=== PATIENT | male | born 1955 | race African-American/Black ===

== ENCOUNTER 2016-12-27 17:32 | Inpatient (IN) ==
[2016-12-27] MEDS ORDERED: DIPH/TET/ACEL PERT BOOSTER VACCINE 0.5 ML VIAL IM ONE ×2 (18:06→18:25)
[2016-12-27] MEDS ORDERED: LACTATED RINGERS 1,000 ML IV STA (18:06)
[2016-12-27 18:24] LABS: Basophils % 0.3 % (0.0-0.8); Eosinophils % 0.1 % (0.00-10.9); Hemoglobin 12.3 GM/DL (14.0-18.0); Immature Granulocytes % 0.5 %; Immature Granulocytes Absolute 0.07 #; Lymphocytes # 1.4 10*3/uL (1.4-4.0); Lymphocytes % 10.8 % (21.2-54.2); Mean Corpuscular HGB Conc 34.2 GM/DL (32-36); Mean Corpuscular Hemoglobin 30 PG (27-34); Mean Corpuscular Volume 88.7 FL (87-102); Mean Platelet Volume 9.8 FL (9.6-12.0); Monocytes # 0.9 10*3/uL (0.11-0.8); Monocytes % 6.5 % (1.7-12.7); Neutrophils # 10.6 10*3/uL (1.4-7.4); Neutrophils % 81.8 % (38.7-73.9); Platelet Count 230 T/CUMM (130-400); Red Blood Count 4.06 MC/CUMM (3.8-5.5); Red Cell Distribution Width 14.9 % (9.3-17.3)
[2016-12-27 18:33] LABS: PT Patient Result 10.7 SECS; Partial Thromboplastin Time 25.9 SECS (0-40)
[2016-12-27 18:42] LABS: Lactic Acid 2.9 MMOL/L (0.4-2.0)
[2016-12-27 18:55] LABS: Alanine Aminotransferase 31 U/L (16-61); Albumin 3.6 G/DL (3.4-5.0); Alkaline Phosphatase 77 U/L (45-117); Amylase 112 U/L (25-115); Aspartate Amino Transferase 50 U/L (0-37); Bilirubin,Total < 0.39 MG/DL (0.2-1.0); Blood Urea Nitrogen 14 MG/DL (7-18); Calcium 8.1 MG/DL (8.5-10.1); Glucose 104 MG/DL (74-106); Osmolality,Calculated 283.1 MOS/KG (273-304); Potassium 3.8 MMOL/L (3.5-5.1); Sodium 142 MMOL/L (136-145); Total Protein 6.8 G/DL (6.4-8.3)
[2016-12-27] MEDS ORDERED: MORPHINE 2 MG/1 ML SYRINGE ONE (18:56)
[2016-12-27] MEDS ORDERED: MORPHINE 2 MG/1 ML SYRINGE IV STA ×2 (19:01→19:52)
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
[2016-12-27] MEDS ORDERED: ceFAZolin 1,000 MG VIAL ONE (19:42)
[2016-12-27] MEDS ORDERED: ceFAZolin 2,000 MG in SODIUM CHLORIDE 0.9% 100 ML IV STA (19:43)
[2016-12-27 19:44] LABS: Apearance,Urine Slightly Hazy (Clear); Bilirubin,Urine Negative (Negative); Blood, Urine Large mg/dL (Negative); Glucose,Urine (UA) Negative (Negative); Hyaline Casts,Urine 2 /LPF (0-3); Ketones,Urine Negative (Negative); Mucus,Urine Occasional /LPF (Occasional); Nitrite,Urine Negative (Negative); Protein,Urine 100 MG/DL; RBC,Urine 567 /HPF (0-4); Squamous Epithelial Cell,Urine Occasional /HPF (0-10); Urine Color Yellow (Yellow); Urine Specific Gravity 1.015 (1.001-1.035); Urine Urobilinogen < 2.0 EU/DL (0.2-1.0); WBC,Urine 9 /HPF (0-6)
[2016-12-27 19:52] LABS: Barbiturates Screen,Urine Negative (Negative); Benzodiazepines Screen,Urine Negative (Negative); Cannabinoid Screen,Urine Negative (Negative); Opiate Screen,Urine Negative (Negative); Phencyclidine Screen,Urine Negative (Negative)
[2016-12-27] MEDS ORDERED: NEOSTIGMINE 10 MG/10 ML VIAL ONE (20:24)
[2016-12-27] MEDS ORDERED: PHENYLEPHRINE 1 MG/10 ML SYRINGE IV ONE (20:24)
[2016-12-27] MEDS ORDERED: GLYCOPYRROLATE 0.4 MG/2 ML VIAL ONE (20:24)
[2016-12-27] MEDS ORDERED: LIDOCAINE 1% 5 ML VIAL ONE (20:24)
[2016-12-27] MEDS ORDERED: ROCURONIUM 100 MG/10 ML VIAL IV ONE (20:24)
[2016-12-27] MEDS ORDERED: PROPOFOL 200 MG/20 ML VIAL IV ONE (20:24)
[2016-12-27] MEDS ORDERED: LIDOCAINE MPF 2% /EPI 20 ML VIAL ONE (20:38)
[2016-12-27] MEDS ORDERED: BACITRACIN OINT 0.9 GM PACK TOP ONE (21:18)
[2016-12-27] MEDS ORDERED: SUGAMMADEX 200 MG/2 ML VIAL IV ONE (21:28)
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
--- NOTE | 2016-12-27 21:45 | Anesthesia Post-Op ---
Anesthesia Post OP - Post Ansesthetic Evaluation Patient seen in post op: Yes Resp: within normal limits CV: within normal limits Mental: within normal limits Temp: within normal limits Kbht-Cb-Gsyogfnuy: within normal limits Nausea and Vomiting: within normal limits Pain: within normal limits
[2016-12-27] MEDS ORDERED: SEVOFLURANE 1 UNIT/15 MINUTE INH ONE (21:47)
[2016-12-27] MEDS ORDERED: MIDAZOLAM 2 MG/2 ML VIAL ONE (21:47)
[2016-12-27] MEDS ORDERED: ONDANSETRON 4 MG/2 ML VIAL ONE (21:47)
[2016-12-27] MEDS ORDERED: fentaNYL 100 MCG/2 ML VIAL ONE (21:47)
[2016-12-27] MEDS ORDERED: HYDROmorphone 2 MG/1 ML VIAL ONE (21:47)
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
[2016-12-27] MEDS: HYDROmorphone 2 MG/1 ML VIAL IV PRN ×4 (21:48→22:02)
[2016-12-27] MEDS ORDERED: ONDANSETRON 4 MG/2 ML VIAL IV PRN (21:48)
[2016-12-27] MEDS: DEXTROSE 5% LACTATED RINGERS 1,000 ML IV SCH (21:50)
[2016-12-27] MEDS ORDERED: hydrALAZINE 20 MG/1 ML VIAL ONE (22:08)
[2016-12-27] MEDS ORDERED: hydrALAZINE 20 MG/1 ML VIAL IV STA (22:14)
[2016-12-27] MEDS: hydrALAZINE 20 MG/1 ML VIAL IV PRN (23:14)
[2016-12-27] MEDS: MORPHINE 2 MG/1 ML SYRINGE IV PRN (23:21)
[2016-12-28] MEDS ORDERED: LORazepam 2 MG/1 ML VIAL IV PRN (00:35)
[2016-12-28] MEDS: ceFAZolin 2,000 MG in PREMIX 1 EACH IV SCH ×2 (03:16→11:05)
[2016-12-28] MEDS: MORPHINE 2 MG/1 ML SYRINGE IV PRN ×4 (06:06→18:57)
[2016-12-28] MEDS: DEXTROSE 5% LACTATED RINGERS 1,000 ML IV SCH ×3 (06:19→20:40)
[2016-12-28 08:09] LABS: Basophils % 0.4 % (0.0-0.8); Hematocrit 30.7 VOL% (42.0-52.0); Hemoglobin 10.8 GM/DL (14.0-18.0); Immature Granulocytes % 0.4 %; Immature Granulocytes Absolute 0.03 #; Lymphocytes # 0.7 10*3/uL (1.4-4.0); Lymphocytes % 8.5 % (21.2-54.2); Mean Corpuscular HGB Conc 35.2 GM/DL (32-36); Mean Corpuscular Hemoglobin 31 PG (27-34); Mean Corpuscular Volume 87.2 FL (87-102); Mean Platelet Volume 10.2 FL (9.6-12.0); Monocytes # 0.9 10*3/uL (0.11-0.8); Monocytes % 12.2 % (1.7-12.7); Neutrophils % 78.5 % (38.7-73.9); Platelet Count 187 T/CUMM (130-400); Red Blood Count 3.52 MC/CUMM (3.8-5.5); Red Cell Distribution Width 14.9 % (9.3-17.3); White Blood Count 7.6 T/CUMM (4-12)
[2016-12-28] MEDS: ACETAMINOPHEN 325 MG TABLET PO PRN ×2 (08:13→19:36)
[2016-12-28] MEDS: PANTOPRAZOLE 40 MG VIAL IV SCH (08:14)
[2016-12-28 08:37] LABS: Albumin 3.4 G/DL (3.4-5.0); Bilirubin,Total 0.4 MG/DL (0.2-1.0); Calcium 8.1 MG/DL (8.5-10.1); Osmolality,Calculated 278.5 MOS/KG (273-304); Total Protein 6.6 G/DL (6.4-8.3)
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
[2016-12-28] MEDS: hydrALAZINE 20 MG/1 ML VIAL IV PRN (10:37)
[2016-12-28] MEDS ORDERED: SKIN HEALING OINT (AQUAPHOR) 50 GM TUBE TOP PRN (11:26)
[2016-12-28] MEDS: ONDANSETRON 4 MG/2 ML VIAL IV PRN (13:26)
[2016-12-28] MEDS: BACITRACIN OINT 0.9 GM PACK TOP SCH (14:16)
[2016-12-29] MEDS: MORPHINE 2 MG/1 ML SYRINGE IV PRN ×4 (00:16→20:33)
[2016-12-29] MEDS: DEXTROSE 5% LACTATED RINGERS 1,000 ML IV SCH ×6 (01:36→21:29)
[2016-12-29 05:20] LABS: Basophils % 0.3 % (0.0-0.8); Eosinophils # 0.1 10*3/uL (0.0-0.87); Eosinophils % 0.7 % (0.00-10.9); Hematocrit 29.6 VOL% (42.0-52.0); Hemoglobin 10.4 GM/DL (14.0-18.0); Immature Granulocytes % 0.3 %; Immature Granulocytes Absolute 0.03 #; Lymphocytes # 0.5 10*3/uL (1.4-4.0); Lymphocytes % 6.3 % (21.2-54.2); Mean Corpuscular HGB Conc 35.1 GM/DL (32-36); Mean Corpuscular Hemoglobin 30 PG (27-34); Mean Corpuscular Volume 86.3 FL (87-102); Mean Platelet Volume 10.8 FL (9.6-12.0); Monocytes # 0.7 10*3/uL (0.11-0.8); Monocytes % 8.1 % (1.7-12.7); Neutrophils # 7.3 10*3/uL (1.4-7.4); Neutrophils % 84.3 % (38.7-73.9); Platelet Count 151 T/CUMM (130-400); Red Blood Count 3.43 MC/CUMM (3.8-5.5); Red Cell Distribution Width 14.1 % (9.3-17.3); White Blood Count 8.6 T/CUMM (4-12)
[2016-12-29 05:59] LABS: Calcium 8.3 MG/DL (8.5-10.1); Magnesium 1.7 MG/DL (1.8-2.4); Potassium 3.5 MMOL/L (3.5-5.1)
[2016-12-29 06:03] LABS: Hypochromasia 1+; Microcytosis 1+
[2016-12-29 06:04] LABS: Platelet Estimate Adequate
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
[2016-12-29] MEDS: PANTOPRAZOLE 40 MG VIAL IV SCH (10:14)
[2016-12-29] MEDS: BACITRACIN OINT 0.9 GM PACK TOP SCH (10:14)
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
[2016-12-29] MEDS: hydrALAZINE 20 MG/1 ML VIAL IV PRN ×3 (14:10→20:35)
[2016-12-29] MEDS: LIDOCAINE 5% PATCH TRANSDERM SCH (14:11)
[2016-12-29] MEDS: ONDANSETRON 4 MG/2 ML VIAL IV PRN (17:50)
[2016-12-30] MEDS: MORPHINE 2 MG/1 ML SYRINGE IV PRN ×4 (04:14→18:02)
[2016-12-30] MEDS: DEXTROSE 5% LACTATED RINGERS 1,000 ML IV SCH ×3 (05:34→10:19)
--- NOTE | 2016-12-30 06:45 | Pain Management Progress Note ---
Assessment and Plan (1) Cervical spondylosis with myelopathy Status: Acute Assessment and plan: We will try physical therapy for the neck pain. Using a Lidoderm patch to help with the refracture pain of that is not successful we will try intercostal nerve blocks tomorrow Current Visit: Yes (2) Cervical spondylosis with myelopathy and radiculopathy Status: Acute Assessment and plan: Continue physical therapy for now he may need cervical epidural injection 6/6 continue current medications for pain Current Visit: Yes Pain - Subjective Interval history: lidoderm patches are helping with left chest wall pain and he admits it is slightly better Exam - Constitutional Vitals: Period Temp Pulse Resp BP Sys/Irby Pulse Ox Last 24 Hr 97.4 F-99.5 F 37-108 12-22 142-183/79-100 95-99 General appearance: normal weight - Head Head exam: Present: normal inspection - Eye Eye exam: Present: EOMI Pupils: Present: LEISA - ENT ENT exam: Present: normal exam Ear exam: Present: intact Mouth exam: Present: normal external inspection - Neck Neck exam: Present: normal inspection - Respiratory Respiratory exam: Present: clear to auscultation bilaterally, chest wall tenderness, decreased breath sounds - Cardiovascular Cardiovascular exam: Present: RRR - GI/Abdominal GI/Abdominal exam: Present: normal bowel sounds - Extremities Exam Extremities exam: Present: normal inspection - Back Exam Back exam: Present: vertebral tenderness - Neurological Exam Neurological exam: Present: abnormal gait - Skin Skin exam: Present: normal color Results - Labs CBC & BMP: 12/29/16 04:42 12/29/16 04:42 Lab Results: I have reviewed the past 24 hour labs Quality Measures - VTE Contraindication to Pharmacological VTE Prophylaxis: High Risk of Bleeding Specialty Discharge - Follow Up or Referrals Follow up with: Bryn Fuentes MD [Physician] -
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
[2016-12-30] MEDS: PANTOPRAZOLE 40 MG VIAL IV SCH (08:34)
[2016-12-30] MEDS: LIDOCAINE 5% PATCH TRANSDERM SCH (08:35)
[2016-12-30] MEDS: BACITRACIN OINT 0.9 GM PACK TOP SCH (08:35)
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
[2016-12-30] MEDS: hydrALAZINE 20 MG/1 ML VIAL IV PRN (19:49)
[2016-12-31] MEDS: hydrALAZINE 20 MG/1 ML VIAL IV PRN (04:02)
[2016-12-31] MEDS: MORPHINE 2 MG/1 ML SYRINGE IV PRN ×3 (04:03→20:06)
[2016-12-31] MEDS: DEXTROSE 5% LACTATED RINGERS 1,000 ML IV SCH (04:08)
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
[2016-12-31] MEDS ORDERED: MAGNESIUM CITRATE 300 ML BOTTLE PO ONE (09:14)
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
[2016-12-31] MEDS: PANTOPRAZOLE 40 MG VIAL IV SCH (09:45)
[2016-12-31] MEDS: BACITRACIN OINT 0.9 GM PACK TOP SCH (09:46)
[2016-12-31] MEDS: LIDOCAINE 5% PATCH TRANSDERM SCH (09:46)
[2016-12-31] MEDS: DOCUSATE SODIUM 100 MG CAPSULE PO SCH (20:06)
[2017-01-01] MEDS: DEXTROSE 5% LACTATED RINGERS 1,000 ML IV SCH (00:17)
[2017-01-01] MEDS: MORPHINE 2 MG/1 ML SYRINGE IV PRN ×2 (03:37→20:51)
[2017-01-01 05:21] LABS: Basophils % 0.5 % (0.0-0.8); Eosinophils # 0.1 10*3/uL (0.0-0.87); Eosinophils % 1.8 % (0.00-10.9); Hematocrit 28.3 VOL% (42.0-52.0); Hemoglobin 9.9 GM/DL (14.0-18.0); Immature Granulocytes % 0.4 %; Immature Granulocytes Absolute 0.02 #; Lymphocytes # 0.8 10*3/uL (1.4-4.0); Lymphocytes % 14.2 % (21.2-54.2); Mean Corpuscular Hemoglobin 30 PG (27-34); Monocytes # 0.9 10*3/uL (0.11-0.8); Monocytes % 16.6 % (1.7-12.7); Neutrophils # 3.8 10*3/uL (1.4-7.4); Neutrophils % 66.5 % (38.7-73.9); Platelet Count 166 T/CUMM (130-400); Red Blood Count 3.29 MC/CUMM (3.8-5.5); Red Cell Distribution Width 13.2 % (9.3-17.3); White Blood Count 5.7 T/CUMM (4-12)
[2017-01-01 05:46] LABS: Calcium 8.2 MG/DL (8.5-10.1); Magnesium 1.9 MG/DL (1.8-2.4); Osmolality,Calculated 267.1 MOS/KG (273-304); Potassium 3.3 MMOL/L (3.5-5.1)
[2017-01-01 05:49] LABS: Band Neutrophils 1 % (0-10); Eosinophils 4 % (0-10); Hypochromasia 1+; Lymphocytes 13 % (20-55); Microcytosis 1+; Platelet Estimate Normal; Segmented Neutrophils 64 % (50-85); Total Cells Counted 100
[2017-01-01] MEDS ORDERED: oxyCODONE/ACETAMINOPHEN 5-325 MG TABLET PO PRN (06:12)
--- NOTE | 2017-01-01 06:14 | Pain Management Progress Note ---
Assessment and Plan (1) Cervical spondylosis with myelopathy Status: Acute Assessment and plan: We will try physical therapy for the neck pain. Using a Lidoderm patch to help with the refracture pain of that is not successful we will try intercostal nerve blocks tomorrow 01/01 will continue norco and morphine and add percocet prn Current Visit: Yes (2) Cervical spondylosis with myelopathy and radiculopathy Status: Acute Assessment and plan: Continue physical therapy for now he may need cervical epidural injection 12/30 continue current medications for pain Current Visit: Yes Pain - Subjective Interval history: still complaining of left chest wall pain, i have discussed about the gradual improvement expected . i will add percocet fo pain Exam - Constitutional Vitals: Period Temp Pulse Resp BP Sys/Irby Pulse Ox Last 24 Hr 98.7 F-100.5 F 90-101 18-20 140-160/83-102 93-97 General appearance: mild distress, no no acute distress - Head Head exam: Present: normal inspection - Eye Eye exam: Present: EOMI Pupils: Present: LEISA - ENT ENT exam: Present: normal exam Ear exam: Present: intact Mouth exam: Present: normal external inspection - Neck Neck exam: Present: normal inspection - Respiratory Respiratory exam: Present: chest wall tenderness, decreased breath sounds - Cardiovascular Cardiovascular exam: Present: RRR - GI/Abdominal GI/Abdominal exam: Present: hypoactive bowel sounds - Extremities Exam Extremities exam: Present: normal inspection - Back Exam Back exam: Present: vertebral tenderness - Neurological Exam Neurological exam: Present: abnormal gait - Skin Skin exam: Present: normal color Results - Labs CBC & BMP: 01/01/17 04:29 01/01/17 04:29 Lab Results: I have reviewed the past 24 hour labs Quality Measures - VTE Contraindication to Pharmacological VTE Prophylaxis: High Risk of Bleeding Specialty Discharge - Follow Up or Referrals Follow up with: Bryn Fuentes MD [Physician] -
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
[2017-01-01] MEDS: LIDOCAINE 5% PATCH TRANSDERM SCH (09:11)
[2017-01-01] MEDS: PANTOPRAZOLE 40 MG VIAL IV SCH (09:11)
[2017-01-01] MEDS: DOCUSATE SODIUM 100 MG CAPSULE PO SCH ×2 (09:11→20:52)
[2017-01-01] MEDS: BACITRACIN OINT 0.9 GM PACK TOP SCH (09:16)
--- NOTE | 2017-01-02 06:22 | Pain Management Progress Note ---
Assessment and Plan (1) Cervical spondylosis with myelopathy Status: Acute Assessment and plan: We will try physical therapy for the neck pain. Using a Lidoderm patch to help with the refracture pain of that is not successful we will try intercostal nerve blocks tomorrow 01/01 will continue norco and morphine and add percocet prn 01/02 I will give him prescription of Percocet to go home on. And we will see him for follow-up in pain clinic in 1 month Current Visit: Yes (2) Cervical spondylosis with myelopathy and radiculopathy Status: Acute Assessment and plan: Continue physical therapy for now he may need cervical epidural injection 12/30 continue current medications for pain Current Visit: Yes Pain - Subjective Interval history: His pain seems to be better controlled and patient is feeling better today. I will go ahead and write Percocet prescription for him to go home on making a follow-up appointment pain clinic Exam - Constitutional Vitals: Period Temp Pulse Resp BP Sys/Irby Pulse Ox Last 24 Hr 97.4 F-99.2 F 79-84 16-20 129-163/81-93 93-97 General appearance: no acute distress - Head Head exam: Present: normal inspection - Eye Eye exam: Present: EOMI Pupils: Present: LEISA - ENT ENT exam: Present: normal exam Ear exam: Present: intact Mouth exam: Present: normal external inspection - Neck Neck exam: Present: normal inspection - Respiratory Respiratory exam: Present: chest wall tenderness, decreased breath sounds - Cardiovascular Cardiovascular exam: Present: RRR - GI/Abdominal GI/Abdominal exam: Present: normal bowel sounds - Extremities Exam Extremities exam: Present: normal inspection - Back Exam Back exam: Present: vertebral tenderness - Neurological Exam Neurological exam: Present: abnormal gait Results - Labs CBC & BMP: 01/01/17 04:29 01/01/17 04:29 Lab Results: I have reviewed the past 24 hour labs Quality Measures - VTE Contraindication to Pharmacological VTE Prophylaxis: High Risk of Bleeding Specialty Discharge - Follow Up or Referrals Follow up with: Bryn Fuentes MD [Physician] -
[2017-01-02 07:08] VITALS: BP 151/77
[2017-01-02] MEDS: DOCUSATE SODIUM 100 MG CAPSULE PO SCH (09:25)
[2017-01-02] MEDS: BACITRACIN OINT 0.9 GM PACK TOP SCH (09:25)
[2017-01-02] MEDS: PANTOPRAZOLE 40 MG VIAL IV SCH (09:25)
[2017-01-02] MEDS: LIDOCAINE 5% PATCH TRANSDERM SCH (09:27)
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
== END 2017-01-02 11:45 | disposition home or self-care (01) | DRG 571 ==
LOC: N.ED 17:32 → N.EDINP 19:50 → N.ICU 20:22 → N.3E 12-29 20:36
PROVIDERS: ADMIT Specialist; ATTEND Specialist

== ENCOUNTER 2018-12-10 12:13 | Inpatient (IN) ==
[2018-12-10] MEDS ORDERED: SODIUM CHLORIDE 0.9% 500 ML IV STA (12:38)
[2018-12-10] MEDS ORDERED: ONDANSETRON 4 MG/2 ML VIAL IV STA (12:38)
[2018-12-10 13:32] LABS: Basophils % 0.4 % (0.0-0.8); Eosinophils % 0.2 % (0.00-10.9); Hematocrit 42.8 VOL% (42.0-52.0); Hemoglobin 14.2 GM/DL (14.0-18.0); Immature Granulocytes % 0.4 %; Immature Granulocytes Absolute 0.02 #; Lymphocytes # 1.7 10*3/uL (1.4-4.0); Mean Corpuscular HGB Conc 33.2 GM/DL (32-36); Mean Corpuscular Volume 87.5 FL (87-102); Mean Platelet Volume 11.4 FL (9.6-12.0); Monocytes % 8.8 % (1.7-12.7); Neutrophils % 59.2 % (38.7-73.9); Platelet Count 189 T/CUMM (130-400); Red Blood Count 4.89 MC/CUMM (3.8-5.5); Red Cell Distribution Width 14.3 % (9.3-17.3); White Blood Count 5.5 T/CUMM (4-12)
[2018-12-10 14:12] LABS: INR 1.1; PT Patient Result 11.6 SECS; Partial Thromboplastin Time 27.9 SECS (0-40)
[2018-12-10 17:04] LABS: Alanine Aminotransferase 103 U/L (16-61); Albumin 3.7 G/DL (3.4-5.0); Alkaline Phosphatase 187 U/L (45-117); Aspartate Amino Transferase 51 U/L (0-37); Blood Urea Nitrogen 19 MG/DL (7-18); Calcium 10.2 MG/DL (8.5-10.1); Glucose 82 MG/DL (74-106); Osmolality,Calculated 273.8 MOS/KG (273-304); Troponin I 0.062 NG/ML (0.00-0.045)
[2018-12-10] MEDS ORDERED: METOPROLOL TARTRATE 5 MG/5 ML VIAL IV STA (17:57)
[2018-12-10 18:43] LABS: Apearance,Urine CLEAR (Clear); Bilirubin,Urine Negative (Negative); Blood, Urine Negative (Negative); Glucose,Urine (UA) Negative (Negative); Hyaline Casts,Urine 5 /LPF (0-3); Ketones,Urine Negative (Negative); Mucus,Urine Occasional /LPF (Occasional); Nitrite,Urine Negative (Negative); Protein,Urine Negative; RBC,Urine 1 /HPF (0-4); Squamous Epithelial Cell,Urine Occasional /HPF (0-10); Urine Color Yellow (Yellow); Urine Specific Gravity 1.021 (1.001-1.035); Urine Urobilinogen < 2.0 EU/DL (0.2-1.0); WBC,Urine 2 /HPF (0-6)
[2018-12-10 18:45] LABS: Barbiturates Screen,Urine Negative (Negative); Benzodiazepines Screen,Urine Negative (Negative); Cannabinoid Screen,Urine Negative (Negative); Opiate Screen,Urine Negative (Negative); Phencyclidine Screen,Urine Negative (Negative)
[2018-12-10] MEDS ORDERED: MORPHINE 4 MG/1 ML VIAL IV PRN (20:18)
[2018-12-10] MEDS ORDERED: ONDANSETRON 4 MG/2 ML VIAL IV PRN (20:18)
[2018-12-10] MEDS ORDERED: guaiFENesin/DM ER 600-30 MG TABLET PO PRN (20:18)
[2018-12-10 21:35] LABS: Hepatitis B Surface Ag Quant < 0.10 Index; Hepatitis B Surface Ag Result Negative (Negative); Hepatitis C Virus Ab Quant 0.09 Index; Hepatitis C Virus Ab Result Negative (Negative)
[2018-12-10 22:02] LABS: Troponin I 0.069 NG/ML (0.00-0.045)
[2018-12-10] MEDS: SODIUM CHLORIDE 0.9% 1,000 ML IV SCH (22:09)
[2018-12-10] MEDS: METOPROLOL TARTRATE 100 MG TABLET PO SCH (22:10)
[2018-12-10] MEDS: DILTIAZEM 30 MG TABLET PO SCH (22:10)
[2018-12-11 05:04] LABS: Basophils % 0.4 % (0.0-0.8); Eosinophils % 0.5 % (0.00-10.9); Hematocrit 38.4 VOL% (42.0-52.0); Hemoglobin 12.7 GM/DL (14.0-18.0); Immature Granulocytes % 0.2 %; Immature Granulocytes Absolute 0.01 #; Lymphocytes # 1.9 10*3/uL (1.4-4.0); Lymphocytes % 33.5 % (21.2-54.2); Mean Corpuscular HGB Conc 33.1 GM/DL (32-36); Mean Corpuscular Volume 86.3 FL (87-102); Mean Platelet Volume 11.4 FL (9.6-12.0); Monocytes % 9.5 % (1.7-12.7); Neutrophils % 55.9 % (38.7-73.9); Platelet Count 186 T/CUMM (130-400); Red Blood Count 4.45 MC/CUMM (3.8-5.5); Red Cell Distribution Width 14.2 % (9.3-17.3); White Blood Count 5.6 T/CUMM (4-12)
[2018-12-11 05:38] LABS: Albumin 3.2 G/DL (3.4-5.0); Bilirubin,Total 0.9 MG/DL (0.2-1.0); Calcium 9.5 MG/DL (8.5-10.1); Osmolality,Calculated 272.8 MOS/KG (273-304); Risk Ratio 2.36; VLDL CHOLESTEROL 13.8 MG/DL
[2018-12-11] MEDS ORDERED: ATORVASTATIN 80 MG TABLET PO SCH (09:00)
[2018-12-11] MEDS: SERTRALINE 50 MG TABLET PO SCH (09:46)
[2018-12-11] MEDS: DILTIAZEM 30 MG TABLET PO SCH (09:47)
[2018-12-11] MEDS: METOPROLOL TARTRATE 100 MG TABLET PO SCH ×2 (09:47→22:35)
[2018-12-11] MEDS: PANTOPRAZOLE 40 MG TABLET PO SCH (09:47)
[2018-12-11] MEDS: DOCUSATE/SENNA 50-8.6 MG TABLET PO SCH (09:47)
[2018-12-11] MEDS: LISINOPRIL 5 MG TABLET PO SCH (09:47)
[2018-12-11] MEDS: ASPIRIN EC 81 MG TABLET PO SCH (13:15)
[2018-12-11] MEDS: SODIUM CHLORIDE 0.9% 1,000 ML IV SCH (15:55)
[2018-12-11] MEDS: RIVAROXABAN 20 MG TABLET PO SCH (18:04)
[2018-12-12 04:37] LABS: Basophils % 0.5 % (0.0-0.8); Hematocrit 38.5 VOL% (42.0-52.0); Hemoglobin 12.3 GM/DL (14.0-18.0); Immature Granulocytes % 0.2 %; Immature Granulocytes Absolute 0.01 #; Lymphocytes # 1.6 10*3/uL (1.4-4.0); Lymphocytes % 38.3 % (21.2-54.2); Mean Corpuscular HGB Conc 31.9 GM/DL (32-36); Mean Corpuscular Volume 88.5 FL (87-102); Mean Platelet Volume 11.4 FL (9.6-12.0); Monocytes % 9.3 % (1.7-12.7); Neutrophils % 50.7 % (38.7-73.9); Platelet Count 187 T/CUMM (130-400); Red Blood Count 4.35 MC/CUMM (3.8-5.5); Red Cell Distribution Width 14.3 % (9.3-17.3); White Blood Count 4.1 T/CUMM (4-12)
[2018-12-12 04:50] LABS: Albumin 3.1 G/DL (3.4-5.0); Bilirubin,Total 0.6 MG/DL (0.2-1.0); Osmolality,Calculated 281.3 MOS/KG (273-304); Total Protein 6.8 G/DL (6.4-8.3)
[2018-12-12 09:02] LABS: Troponin I 0.138 NG/ML (0.00-0.045)
[2018-12-12] MEDS: ATORVASTATIN 20 MG TABLET PO SCH (09:14)
[2018-12-12] MEDS: PANTOPRAZOLE 40 MG TABLET PO SCH (09:14)
[2018-12-12] MEDS: ASPIRIN EC 81 MG TABLET PO SCH (09:14)
[2018-12-12] MEDS: SERTRALINE 50 MG TABLET PO SCH (09:14)
[2018-12-12] MEDS: METOPROLOL TARTRATE 100 MG TABLET PO SCH ×2 (09:14→21:53)
[2018-12-12] MEDS: LISINOPRIL 5 MG TABLET PO SCH (09:14)
[2018-12-12] MEDS: DOCUSATE/SENNA 50-8.6 MG TABLET PO SCH (09:14)
[2018-12-12] MEDS: SODIUM CHLORIDE 0.9% 1,000 ML IV SCH ×2 (09:41→13:57)
[2018-12-12 14:11] LABS: % Iron Saturation 25.9 % (18-50)
[2018-12-12] MEDS: RIVAROXABAN 20 MG TABLET PO SCH (16:12)
[2018-12-13] MEDS: SODIUM CHLORIDE 0.9% 1,000 ML IV SCH (05:36)
[2018-12-13 05:57] LABS: Prealbumin 10.1 MG/DL (20-40)
[2018-12-13] MEDS ORDERED: ACETAMINOPHEN 325 MG TABLET PO ONE (08:04)
[2018-12-13] MEDS: PANTOPRAZOLE 40 MG TABLET PO SCH (08:10)
[2018-12-13] MEDS: ATORVASTATIN 20 MG TABLET PO SCH (08:10)
[2018-12-13] MEDS: METOPROLOL TARTRATE 100 MG TABLET PO SCH (08:10)
[2018-12-13] MEDS: SERTRALINE 50 MG TABLET PO SCH (08:10)
[2018-12-13] MEDS: ASPIRIN EC 81 MG TABLET PO SCH (08:10)
[2018-12-13] MEDS: LISINOPRIL 5 MG TABLET PO SCH (08:10)
[2018-12-13] MEDS: DOCUSATE/SENNA 50-8.6 MG TABLET PO SCH (08:11)
[2018-12-13 08:22] VITALS: BP 113/75
[2018-12-13] MEDS ORDERED: MAGNESIUM SULF RIDER 4 GM in PREMIX 1 EACH IV PRN (08:36)
[2018-12-13] MEDS ORDERED: MAGNESIUM SULF RIDER 2 GM in PREMIX 1 EACH IV PRN (08:36)
[2018-12-13] MEDS: RIVAROXABAN 20 MG TABLET PO SCH (16:47)
== END 2018-12-13 17:25 | disposition home health service (06) | DRG 201 ==
LOC: EDUNIT# → EDBD → N.ED 12:13 → N.EDINP 20:16 → N.TELEN 20:35
PROVIDERS: ADMIT Internal Medicine; ATTEND Internal Medicine

== ENCOUNTER 2018-12-17 13:17 | Observation (INO) ==
[2018-12-17] MEDS ORDERED: ONDANSETRON 4 MG/2 ML VIAL IV STA (13:45)
[2018-12-17] MEDS ORDERED: PANTOPRAZOLE 40 MG VIAL IV STA (13:45)
[2018-12-17] MEDS ORDERED: SODIUM CHLORIDE 0.9% 500 ML IV STA (13:45)
[2018-12-17] MEDS ORDERED: METOCLOPRAMIDE 10 MG/2 ML VIAL IV STA (13:45)
[2018-12-17 14:51] LABS: Basophils % 0.3 % (0.0-0.8); Hemoglobin 12.8 GM/DL (14.0-18.0); Immature Granulocytes % 0.4 %; Immature Granulocytes Absolute 0.03 #; Lymphocytes # 1.3 10*3/uL (1.4-4.0); Lymphocytes % 16.4 % (21.2-54.2); Mean Corpuscular Volume 88.3 FL (87-102); Mean Platelet Volume 11.5 FL (9.6-12.0); Monocytes % 5.5 % (1.7-12.7); Neutrophils % 77.4 % (38.7-73.9); Platelet Count 190 T/CUMM (130-400); Red Blood Count 4.53 MC/CUMM (3.8-5.5); Red Cell Distribution Width 14.8 % (9.3-17.3); White Blood Count 7.9 T/CUMM (4-12)
[2018-12-17 15:01] LABS: INR 1.1; PT Patient Result 11.4 SECS; Partial Thromboplastin Time 24.4 SECS (0-40)
[2018-12-17 15:53] LABS: Alanine Aminotransferase 83 U/L (16-61); Albumin 3.9 G/DL (3.4-5.0); Alkaline Phosphatase 187 U/L (45-117); Amylase 92 U/L (25-115); Aspartate Amino Transferase 59 U/L (0-37); Blood Urea Nitrogen 22 MG/DL (7-18); Calcium 9.9 MG/DL (8.5-10.1); Glucose 83 MG/DL (74-106); Osmolality,Calculated 274.8 MOS/KG (273-304); Total Protein 8.1 G/DL (6.4-8.3)
[2018-12-17 16:24] LABS: Apearance,Urine Slightly Hazy (Clear); Bilirubin,Urine Negative (Negative); Blood, Urine Negative (Negative); Glucose,Urine (UA) Negative (Negative); Hyaline Casts,Urine 43 /LPF (0-3); Ketones,Urine Negative (Negative); Mucus,Urine Moderate /LPF (Occasional); Nitrite,Urine Negative (Negative); Protein,Urine Negative; RBC,Urine 36 /HPF (0-4); Squamous Epithelial Cell,Urine Occasional /HPF (0-10); Urine Specific Gravity 1.023 (1.001-1.035); WBC,Urine 3 /HPF (0-6)
[2018-12-17 16:27] LABS: Urine Color y (Yellow)
[2018-12-17 18:36] LABS: Blood Urea Nitrogen 23 MG/DL (7-18); Calcium 9.4 MG/DL (8.5-10.1); Glucose 87 MG/DL (74-106)
[2018-12-17 18:37] LABS: Troponin I 0.048 NG/ML (0.00-0.045)
[2018-12-17] MEDS ORDERED: ONDANSETRON 4 MG/2 ML VIAL IV PRN (20:45)
[2018-12-17] MEDS: SODIUM CHLORIDE 0.9% 1,000 ML IV SCH (22:29)
[2018-12-17] MEDS: MAGNESIUM CITRATE 300 ML BOTTLE PO STA ×2 (22:29→22:36)
[2018-12-17] MEDS: PANTOPRAZOLE 40 MG TABLET PO SCH (22:29)
[2018-12-18] MEDS: DILTIAZEM 30 MG TABLET PO SCH ×3 (01:06→13:01)
[2018-12-18 04:10] LABS: Basophils % 0.5 % (0.0-0.8); Eosinophils % 0.5 % (0.00-10.9); Hematocrit 37.1 VOL% (42.0-52.0); Hemoglobin 11.9 GM/DL (14.0-18.0); Immature Granulocytes % 0.3 %; Immature Granulocytes Absolute 0.02 #; Lymphocytes # 2.1 10*3/uL (1.4-4.0); Lymphocytes % 32.5 % (21.2-54.2); Mean Corpuscular HGB Conc 32.1 GM/DL (32-36); Mean Corpuscular Volume 87.9 FL (87-102); Monocytes % 11.7 % (1.7-12.7); Neutrophils % 54.5 % (38.7-73.9); Platelet Count 181 T/CUMM (130-400); Red Blood Count 4.22 MC/CUMM (3.8-5.5); Red Cell Distribution Width 14.8 % (9.3-17.3); White Blood Count 6.5 T/CUMM (4-12)
[2018-12-18 04:22] LABS: Albumin 3.3 G/DL (3.4-5.0); Bilirubin,Total 0.5 MG/DL (0.2-1.0); Calcium 9.5 MG/DL (8.5-10.1); Osmolality,Calculated 274.8 MOS/KG (273-304); Total Protein 7.2 G/DL (6.4-8.3)
[2018-12-18] MEDS: SODIUM CHLORIDE 0.9% 1,000 ML IV SCH (06:44)
[2018-12-18] MEDS ORDERED: BISACODYL 5 MG TABLET PO SCH (09:00)
[2018-12-18] MEDS ORDERED: ATORVASTATIN 20 MG TABLET PO SCH (09:00)
[2018-12-18] MEDS ORDERED: ASPIRIN EC 81 MG TABLET PO SCH (09:00)
[2018-12-18] MEDS ORDERED: SERTRALINE 50 MG TABLET PO SCH (09:00)
[2018-12-18] MEDS: PANTOPRAZOLE 40 MG TABLET PO SCH (09:21)
[2018-12-18] MEDS ORDERED: MAGNESIUM CITRATE 300 ML BOTTLE PO ONE (09:32)
[2018-12-18 12:09] VITALS: BP 90/72
[2018-12-18] MEDS ORDERED: RIVAROXABAN 20 MG TABLET PO SCH (17:00)
== END 2018-12-18 15:45 | disposition home or self-care (01) ==
LOC: EDUNIT# → EDBD → N.ED 13:17 → N.EDINP 13:17 → N.2E 21:26
PROVIDERS: ADMIT Internal Medicine; ATTEND Internal Medicine

== ENCOUNTER 2019-02-19 08:27 | Observation (INO) ==
[2019-02-19 09:14] LABS: Basophils % 0.2 % (0.0-0.8); Eosinophils % 0.2 % (0.00-10.9); Hematocrit 42.4 VOL% (42.0-52.0); Hemoglobin 13.6 GM/DL (14.0-18.0); Immature Granulocytes % 0.4 %; Immature Granulocytes Absolute 0.03 #; Lymphocytes # 1.1 10*3/uL (1.4-4.0); Lymphocytes % 13.3 % (21.2-54.2); Mean Corpuscular HGB Conc 32.1 GM/DL (32-36); Mean Corpuscular Volume 88.3 FL (87-102); Mean Platelet Volume 12.4 FL (9.6-12.0); Monocytes % 14.1 % (1.7-12.7); Neutrophils % 71.8 % (38.7-73.9); Platelet Count 195 T/CUMM (130-400); Red Cell Distribution Width 14.2 % (9.3-17.3); White Blood Count 8.3 T/CUMM (4-12)
[2019-02-19 09:22] LABS: INR 1.3; PT Patient Result 14.2 SECS; Partial Thromboplastin Time 39.2 SECS (0-40)
[2019-02-19 09:32] LABS: Albumin 3.4 G/DL (3.4-5.0); Bilirubin,Total 0.6 MG/DL (0.2-1.0); Calcium 9.4 MG/DL (8.5-10.1); Osmolality,Calculated 272.1 MOS/KG (273-304); Total Protein 8.1 G/DL (6.4-8.3)
[2019-02-19] MEDS ORDERED: NITROGLYCERIN SL 0.4 MG TABLET SL STA (09:35)
[2019-02-19] MEDS ORDERED: BISACODYL 5 MG TABLET PO PRN (13:09)
[2019-02-19] MEDS ORDERED: SENNA 8.6 MG TABLET PO PRN (13:09)
[2019-02-19] MEDS ORDERED: GLUCAGON 1 MG VIAL IM PRN (13:36)
[2019-02-19] MEDS ORDERED: DEXTROSE 50% 25 GM/50 ML VIAL IV PRN (13:36)
[2019-02-19] MEDS ORDERED: RIVAROXABAN 20 MG TABLET PO SCH (17:00)
[2019-02-19] MEDS: DILTIAZEM 30 MG TABLET PO SCH ×2 (17:06→23:06)
[2019-02-19] MEDS: PANTOPRAZOLE 40 MG TABLET PO SCH (20:32)
[2019-02-20 02:48] LABS: Basophils % 0.3 % (0.0-0.8); Eosinophils % 0.5 % (0.00-10.9); Hematocrit 39.3 VOL% (42.0-52.0); Hemoglobin 13.1 GM/DL (14.0-18.0); Immature Granulocytes % 0.3 %; Immature Granulocytes Absolute 0.02 #; Lymphocytes # 1.3 10*3/uL (1.4-4.0); Lymphocytes % 17.5 % (21.2-54.2); Mean Corpuscular HGB Conc 33.3 GM/DL (32-36); Mean Corpuscular Volume 87.3 FL (87-102); Mean Platelet Volume 12.3 FL (9.6-12.0); Monocytes % 18.2 % (1.7-12.7); Neutrophils % 63.2 % (38.7-73.9); Platelet Count 165 T/CUMM (130-400); White Blood Count 7.6 T/CUMM (4-12)
[2019-02-20 03:08] LABS: Albumin 3.2 G/DL (3.4-5.0); Bilirubin,Total 0.8 MG/DL (0.2-1.0); Calcium 9.1 MG/DL (8.5-10.1); Osmolality,Calculated 275.8 MOS/KG (273-304); Total Protein 7.6 G/DL (6.4-8.3)
[2019-02-20 03:21] LABS: Anisocytosis 1+; Lymphocytes 22 % (20-55); Segmented Neutrophils 68 % (50-85); Total Cells Counted 100
[2019-02-20 03:22] LABS: Platelet Estimate Adequate
[2019-02-20 08:22] VITALS: BP 100/62
[2019-02-20] MEDS ORDERED: SERTRALINE 50 MG TABLET PO SCH (09:00)
[2019-02-20] MEDS ORDERED: ATORVASTATIN 80 MG TABLET PO SCH (09:00)
[2019-02-20] MEDS ORDERED: ASPIRIN EC 81 MG TABLET PO SCH (09:00)
[2019-02-20] MEDS: DILTIAZEM 30 MG TABLET PO SCH (10:00)
[2019-02-20] MEDS: PANTOPRAZOLE 40 MG TABLET PO SCH (10:01)
== END 2019-02-20 11:18 | disposition home or self-care (01) ==
LOC: EDBD → EDUNIT# → N.ED 08:27 → N.EDINP 08:27 → N.2E 14:20
PROVIDERS: ADMIT Internal Medicine; ATTEND Internal Medicine

== ENCOUNTER 2019-09-14 11:58 | Inpatient (IN) ==
[2019-09-14] MEDS ORDERED: SODIUM CHLORIDE 0.9% 1,000 ML IV STA (12:29)
[2019-09-14 13:21] LABS: Basophils % 0.3 % (0.0-0.8); Eosinophils % 0.3 % (0.00-10.9); Hematocrit 46.5 VOL% (42.0-52.0); Hemoglobin 15.1 GM/DL (14.0-18.0); Immature Granulocytes % 0.4 %; Immature Granulocytes Absolute 0.05 #; Lymphocytes % 8.1 % (21.2-54.2); Mean Corpuscular HGB Conc 32.5 GM/DL (32-36); Mean Corpuscular Volume 87.6 FL (87-102); Mean Platelet Volume 10.7 FL (9.6-12.0); Monocytes % 6.1 % (1.7-12.7); Neutrophils % 84.8 % (38.7-73.9); Platelet Count 221 T/CUMM (130-400); Red Blood Count 5.31 MC/CUMM (3.8-5.5); Red Cell Distribution Width 14.6 % (9.3-17.3)
[2019-09-14 13:36] LABS: Alanine Aminotransferase 14 U/L (16-61); Albumin 3.7 G/DL (3.4-5.0); Alkaline Phosphatase 143 U/L (45-117); Aspartate Amino Transferase 18 U/L (0-37); Blood Urea Nitrogen 12 MG/DL (7-18); Calcium 9.6 MG/DL (8.5-10.1); Estimated Glom Filtration Rate 79 ML/MIN; Glucose 84 MG/DL (74-106); Total Protein 8.3 G/DL (6.4-8.3)
[2019-09-14 14:33] LABS: Amorphous Crystals,Urine Occasional /HPF (Few); Apearance,Urine Slightly Hazy (Clear); Bilirubin,Urine Negative (Negative); Blood, Urine Negative (Negative); Glucose,Urine (UA) Negative (Negative); Hyaline Casts,Urine 15 /LPF (0-3); Ketones,Urine Negative (Negative); Mucus,Urine Few /LPF (Occasional); Nitrite,Urine Negative (Negative); Protein,Urine Negative; RBC,Urine 3 /HPF (0-4); Squamous Epithelial Cell,Urine Occasional /HPF (0-10); Urine Color Yellow (Yellow); Urine Specific Gravity 1.015 (1.001-1.035); Urine Urobilinogen < 2.0 EU/DL (0.2-1.0)
[2019-09-14] MEDS ORDERED: SODIUM CHLORIDE 0.9% 2,150 ML IV ONE (14:47)
[2019-09-14] MEDS: PIPERACILLIN/TAZOBACTAM 3,375 MG in SODIUM CHLORIDE 0.9% 100 ML IV SCH (15:16)
[2019-09-14] MEDS ORDERED: DOCUSATE SODIUM 100 MG CAPSULE PO PRN (16:06)
[2019-09-14] MEDS ORDERED: ONDANSETRON 4 MG/2 ML VIAL IV PRN (16:09)
[2019-09-14] MEDS ORDERED: ACETAMINOPHEN 325 MG TABLET PO PRN (16:09)
[2019-09-14] MEDS ORDERED: SODIUM CHLORIDE 0.9% 500 ML IV ONE (17:04)
[2019-09-14] MEDS: dilTIAZem Drip 125 MG/125 ML PREMIX IV SCH (19:23)
[2019-09-14] MEDS: RIVAROXABAN 20 MG TABLET PO SCH (19:36)
[2019-09-14] MEDS ORDERED: VANCOMYCIN INJ 1,000 MG in SODIUM CHLORIDE 0.9% 250 ML IV SCH (20:00)
[2019-09-14] MEDS: GABAPENTIN 300 MG CAPSULE PO SCH (21:47)
[2019-09-14] MEDS ORDERED: PIPERACILLIN/TAZOBACTAM 3,375 MG in SODIUM CHLORIDE 0.9% 100 ML IV SCH (23:00)
[2019-09-15 01:20] LABS: Calcium 8.5 MG/DL (8.5-10.1); Osmolality,Calculated 267.1 MOS/KG (273-304)
[2019-09-15 02:11] LABS: Basophils % 0.5 % (0.0-0.8); Eosinophils # 0.1 10*3/uL (0.0-0.87); Eosinophils % 1.7 % (0.00-10.9); Hematocrit 37.9 VOL% (42.0-52.0); Hemoglobin 12.4 GM/DL (14.0-18.0); Immature Granulocytes % 0.4 %; Immature Granulocytes Absolute 0.03 #; Lymphocytes # 2.6 10*3/uL (1.4-4.0); Lymphocytes % 31.2 % (21.2-54.2); Mean Corpuscular HGB Conc 32.7 GM/DL (32-36); Mean Corpuscular Volume 87.3 FL (87-102); Mean Platelet Volume 10.6 FL (9.6-12.0); Monocytes % 8.3 % (1.7-12.7); Neutrophils % 57.9 % (38.7-73.9); Platelet Count 191 T/CUMM (130-400); Red Blood Count 4.34 MC/CUMM (3.8-5.5); Red Cell Distribution Width 14.6 % (9.3-17.3); White Blood Count 8.4 T/CUMM (4-12)
[2019-09-15] MEDS: PIPERACILLIN/TAZOBACTAM 3,375 MG in SODIUM CHLORIDE 0.9% 100 ML IV SCH ×4 (06:04→22:44)
[2019-09-15] MEDS ORDERED: MAGNESIUM CITRATE 300 ML BOTTLE PO ONE (07:55)
[2019-09-15] MEDS: PANTOPRAZOLE 40 MG TABLET PO SCH (09:31)
[2019-09-15] MEDS: GABAPENTIN 300 MG CAPSULE PO SCH ×3 (09:31→21:20)
[2019-09-15] MEDS: METOPROLOL SUCCINATE XL 50 MG TABLET PO SCH (09:31)
[2019-09-15] MEDS: SERTRALINE 50 MG TABLET PO SCH (09:31)
[2019-09-15] MEDS: dilTIAZem Drip 125 MG/125 ML PREMIX IV SCH (17:15)
[2019-09-15] MEDS: RIVAROXABAN 20 MG TABLET PO SCH (18:20)
[2019-09-15] MEDS ORDERED: ATORVASTATIN 80 MG TABLET PO SCH (21:00)
[2019-09-16 04:46] LABS: Basophils # 0.1 10*3/uL (0.0-0.2); Basophils % 0.9 % (0.0-0.8); Eosinophils # 0.2 10*3/uL (0.0-0.87); Eosinophils % 4.1 % (0.00-10.9); Hematocrit 39.2 VOL% (42.0-52.0); Hemoglobin 12.7 GM/DL (14.0-18.0); Immature Granulocytes % 0.4 %; Immature Granulocytes Absolute 0.02 #; Lymphocytes # 1.7 10*3/uL (1.4-4.0); Lymphocytes % 31.2 % (21.2-54.2); Mean Corpuscular HGB Conc 32.4 GM/DL (32-36); Mean Corpuscular Volume 86.3 FL (87-102); Mean Platelet Volume 11.6 FL (9.6-12.0); Monocytes % 9.3 % (1.7-12.7); Neutrophils % 54.1 % (38.7-73.9); Platelet Count 161 T/CUMM (130-400); Red Blood Count 4.54 MC/CUMM (3.8-5.5); Red Cell Distribution Width 14.5 % (9.3-17.3); White Blood Count 5.4 T/CUMM (4-12)
[2019-09-16 05:16] LABS: Calcium 8.9 MG/DL (8.5-10.1); Risk Ratio 2.68; VLDL CHOLESTEROL 12.8 MG/DL
[2019-09-16] MEDS: PIPERACILLIN/TAZOBACTAM 3,375 MG in SODIUM CHLORIDE 0.9% 100 ML IV SCH (06:04)
[2019-09-16] MEDS: GABAPENTIN 300 MG CAPSULE PO SCH (09:22)
[2019-09-16] MEDS: SERTRALINE 50 MG TABLET PO SCH (09:22)
[2019-09-16] MEDS: PANTOPRAZOLE 40 MG TABLET PO SCH (09:22)
[2019-09-16] MEDS: METOPROLOL SUCCINATE XL 50 MG TABLET PO SCH (09:22)
[2019-09-16 12:12] VITALS: BP 99/64
[2019-09-16] MEDS: RIVAROXABAN 20 MG TABLET PO SCH (17:53)
== END 2019-09-16 18:07 | disposition home health service (06) | DRG 201 ==
LOC: EDBD → EDUNIT# → N.EDINP 11:58 → N.ED 11:58 → N.TELEN 17:35
PROVIDERS: ADMIT Internal Medicine; ATTEND Internal Medicine

== ENCOUNTER 2020-02-24 16:30 | Observation (INO) ==
[2020-02-24 17:46] LABS: Basophils % 0.4 % (0.0-0.8); Eosinophils % 0.4 % (0.00-10.9); Hematocrit 46.7 VOL% (42.0-52.0); Hemoglobin 15.1 GM/DL (14.0-18.0); Immature Granulocytes % 0.4 %; Immature Granulocytes Absolute 0.03 #; Lymphocytes # 1.5 10*3/uL (1.4-4.0); Lymphocytes % 19.6 % (21.2-54.2); Mean Corpuscular HGB Conc 32.3 GM/DL (32-36); Mean Corpuscular Volume 87.5 FL (87-102); Mean Platelet Volume 10.6 FL (9.6-12.0); Monocytes % 4.9 % (1.7-12.7); Neutrophils % 74.3 % (38.7-73.9); Platelet Count 206 T/CUMM (130-400); Red Blood Count 5.34 MC/CUMM (3.8-5.5); Red Cell Distribution Width 15.2 % (9.3-17.3); White Blood Count 7.6 T/CUMM (4-12)
[2020-02-24 18:08] LABS: Albumin 3.6 G/DL (3.4-5.0); Bilirubin,Total 1.9 MG/DL (0.2-1.0); Calcium 9.4 MG/DL (8.5-10.1); Osmolality,Calculated 272.8 MOS/KG (273-304); Total Protein 8.3 G/DL (6.4-8.3)
[2020-02-24] MEDS ORDERED: GLUCAGON 1 MG VIAL IM PRN (20:26)
[2020-02-24] MEDS ORDERED: guaiFENesin/DM ER 600-30 MG TABLET PO PRN (20:26)
[2020-02-24] MEDS ORDERED: DEXTROSE 50% 25 GM/50 ML VIAL IV PRN (20:26)
[2020-02-24] MEDS ORDERED: DOCUSATE SODIUM 100 MG CAPSULE PO PRN (20:30)
[2020-02-24] MEDS ORDERED: ENOXAPARIN 30 MG/0.3 ML SYRINGE SUBCUT SCH (21:00)
[2020-02-25] MEDS: SODIUM CHLORIDE 0.9% 1,000 ML IV SCH ×4 (00:02→17:46)
[2020-02-25] MEDS: ATORVASTATIN 80 MG TABLET PO SCH ×2 (02:32→21:22)
[2020-02-25] MEDS: GABAPENTIN 300 MG CAPSULE PO SCH ×4 (02:32→21:22)
[2020-02-25] MEDS: SERTRALINE 50 MG TABLET PO SCH (10:46)
[2020-02-25] MEDS: METOPROLOL TARTRATE 50 MG TABLET PO SCH (10:46)
[2020-02-25] MEDS: PANTOPRAZOLE 40 MG TABLET PO SCH (10:46)
[2020-02-25] MEDS: RIVAROXABAN 20 MG TABLET PO SCH (10:46)
[2020-02-26] MEDS: SODIUM CHLORIDE 0.9% 1,000 ML IV SCH ×2 (03:20→13:44)
[2020-02-26 05:17] LABS: Basophils % 0.6 % (0.0-0.8); Eosinophils # 0.1 10*3/uL (0.0-0.87); Eosinophils % 2.6 % (0.00-10.9); Hematocrit 39.5 VOL% (42.0-52.0); Hemoglobin 12.9 GM/DL (14.0-18.0); Lymphocytes # 2.3 10*3/uL (1.4-4.0); Lymphocytes % 48.6 % (21.2-54.2); Mean Corpuscular HGB Conc 32.7 GM/DL (32-36); Mean Corpuscular Volume 85.9 FL (87-102); Mean Platelet Volume 10.3 FL (9.6-12.0); Monocytes % 12.6 % (1.7-12.7); Neutrophils % 35.6 % (38.7-73.9); Platelet Count 182 T/CUMM (130-400); Red Cell Distribution Width 15.4 % (9.3-17.3); White Blood Count 4.7 T/CUMM (4-12)
[2020-02-26 05:36] LABS: Calcium 8.4 MG/DL (8.5-10.1); Osmolality,Calculated 276.4 MOS/KG (273-304)
[2020-02-26 06:25] LABS: Anisocytosis 1+; Eosinophils 5 % (0-10); Lymphocytes 46 % (20-55); Platelet Estimate Normal; Segmented Neutrophils 39 % (50-85); Total Cells Counted 100
[2020-02-26] MEDS: PANTOPRAZOLE 40 MG TABLET PO SCH (09:53)
[2020-02-26] MEDS: GABAPENTIN 300 MG CAPSULE PO SCH ×2 (09:53→16:11)
[2020-02-26] MEDS: SERTRALINE 50 MG TABLET PO SCH (09:53)
[2020-02-26] MEDS: RIVAROXABAN 20 MG TABLET PO SCH (09:53)
[2020-02-26] MEDS: METOPROLOL TARTRATE 50 MG TABLET PO SCH (09:53)
[2020-02-26] MEDS: DIGOXIN 0.125 MG TABLET PO SCH ×2 (10:02→13:52)
[2020-02-26 12:32] VITALS: BP 109/75
[2020-02-27] MEDS ORDERED: METOPROLOL SUCCINATE XL 50 MG TABLET PO SCH (09:00)
== END 2020-02-26 18:17 | disposition home or self-care (01) ==
LOC: EDUNIT# → EDBD → N.EDINP 16:30 → N.ED 16:30 → N.EDINP 02-25 01:12 → N.TELES 02-25 01:53
PROVIDERS: ADMIT Hospitalist; ATTEND Hospitalist

== ENCOUNTER 2020-12-27 14:04 | Inpatient (IN) ==
[2020-12-27 14:41] LABS: Basophils % 0.3 % (0.0-0.8); Eosinophils # 0.1 10*3/uL (0.0-0.87); Eosinophils % 1.2 % (0.00-10.9); Hematocrit 37.3 VOL% (42.0-52.0); Hemoglobin 12.3 GM/DL (14.0-18.0); Immature Granulocytes % 0.5 %; Immature Granulocytes Absolute 0.03 #; Lymphocytes # 2.1 10*3/uL (1.4-4.0); Lymphocytes % 34.3 % (21.2-54.2); Mean Corpuscular Volume 86.3 FL (87-102); Mean Platelet Volume 11.5 FL (9.6-12.0); Monocytes % 9.2 % (1.7-12.7); Neutrophils % 54.5 % (38.7-73.9); Platelet Count 197 T/CUMM (130-400); Red Blood Count 4.32 MC/CUMM (3.8-5.5); Red Cell Distribution Width 15.9 % (9.3-17.3)
[2020-12-27 15:02] LABS: INR 1.2; PT Patient Result 13.5 SECS (10.5-12.0); Partial Thromboplastin Time 34.7 SECS (23.9-33.8)
[2020-12-27 15:03] LABS: Alanine Aminotransferase 21 U/L (16-61); Alkaline Phosphatase 144 U/L (45-117); Aspartate Amino Transferase 25 U/L (0-37); Bilirubin,Total < 0.39 MG/DL (0.2-1.0); Blood Urea Nitrogen 12 MG/DL (7-18); Calcium 8.4 MG/DL (8.5-10.1); Carbon Dioxide 28 MMOL/L (21-32); Estimated Glom Filtration Rate 122 ML/MIN; Glucose 94 MG/DL (74-106); Osmolality,Calculated 278.4 MOS/KG (273-304); Potassium 3.9 MMOL/L (3.5-5.1); Sodium 140 MMOL/L (136-145); Total Protein 6.5 G/DL (6.4-8.2)
[2020-12-27] MEDS ORDERED: LABETALOL 20 MG/4 ML SYRINGE IV PRN (15:38)
[2020-12-27] MEDS ORDERED: ENOXAPARIN 40 MG/0.4 ML SYRINGE SUBCUT SCH (16:00)
[2020-12-27] MEDS: SODIUM CHLORIDE 0.9% 1,000 ML IV SCH (17:15)
[2020-12-27] MEDS: ASPIRIN 300 MG SUPP RECTAL SCH (17:15)
[2020-12-27 21:01] LABS: Barbiturates Screen,Urine Negative (Negative); Benzodiazepines Screen,Urine Negative (Negative); Cannabinoid Screen,Urine Negative (Negative); Opiate Screen,Urine Negative (Negative); Phencyclidine Screen,Urine Negative (Negative)
[2020-12-27] MEDS: ENOXAPARIN 80 MG/0.8 ML SYRINGE SUBCUT SCH (21:42)
[2020-12-28 06:46] LABS: Calcium 8.3 MG/DL (8.5-10.1); Osmolality,Calculated 277.3 MOS/KG (273-304); Risk Ratio 2.37; VLDL CHOLESTEROL 13.8 MG/DL
[2020-12-28] MEDS: SODIUM CHLORIDE 0.9% 1,000 ML IV SCH (07:59)
[2020-12-28] MEDS: ENOXAPARIN 80 MG/0.8 ML SYRINGE SUBCUT SCH ×2 (12:56→13:40)
[2020-12-28] MEDS: ASPIRIN 300 MG SUPP RECTAL SCH (12:56)
[2020-12-28] MEDS: DIGOXIN 0.125 MG TABLET PO SCH (14:12)
[2020-12-28] MEDS: ATORVASTATIN 80 MG TABLET PO SCH (20:33)
[2020-12-29 05:20] LABS: Basophils % 0.4 % (0.0-0.8); Eosinophils # 0.1 10*3/uL (0.0-0.87); Eosinophils % 1.2 % (0.00-10.9); Hematocrit 34.9 VOL% (42.0-52.0); Hemoglobin 11.8 GM/DL (14.0-18.0); Immature Granulocytes % 0.4 %; Immature Granulocytes Absolute 0.02 #; Lymphocytes # 1.8 10*3/uL (1.4-4.0); Lymphocytes % 34.5 % (21.2-54.2); Mean Corpuscular HGB Conc 33.8 GM/DL (32-36); Mean Corpuscular Volume 85.5 FL (87-102); Mean Platelet Volume 11.5 FL (9.6-12.0); Monocytes % 9.4 % (1.7-12.7); Neutrophils % 54.1 % (38.7-73.9); Platelet Count 178 T/CUMM (130-400); Red Blood Count 4.08 MC/CUMM (3.8-5.5); Red Cell Distribution Width 15.8 % (9.3-17.3); White Blood Count 5.1 T/CUMM (4-12)
[2020-12-29 05:48] LABS: Alanine Aminotransferase 14 U/L (16-61); Albumin 2.7 G/DL (3.4-5.0); Alkaline Phosphatase 103 U/L (45-117); Aspartate Amino Transferase 17 U/L (0-37); Bilirubin,Direct < 0.100 MG/DL (0.0-0.20); Bilirubin,Indirect 0.4 MG/DL (0.0-1.0); Blood Urea Nitrogen 9 MG/DL (7-18); Calcium 8.8 MG/DL (8.5-10.1); Carbon Dioxide 27 MMOL/L (21-32); Estimated Glom Filtration Rate 122 ML/MIN; Glucose 82 MG/DL (74-106); Osmolality,Calculated 272.7 MOS/KG (273-304); Potassium 3.9 MMOL/L (3.5-5.1); Sodium 138 MMOL/L (136-145); Total Protein 6.6 G/DL (6.4-8.2)
[2020-12-29] MEDS: METOPROLOL SUCCINATE XL 25 MG TABLET PO SCH (09:27)
[2020-12-29] MEDS: SERTRALINE 50 MG TABLET PO SCH (09:27)
[2020-12-29] MEDS: PANTOPRAZOLE 40 MG TABLET PO SCH (09:27)
[2020-12-29] MEDS: ASPIRIN 325 MG TABLET PO SCH (09:27)
[2020-12-29] MEDS: ENOXAPARIN 40 MG/0.4 ML SYRINGE SUBCUT SCH (09:28)
[2020-12-29] MEDS: DIGOXIN 0.125 MG TABLET PO SCH (13:18)
[2020-12-29] MEDS: ATORVASTATIN 80 MG TABLET PO SCH (20:47)
[2020-12-30] MEDS: ENOXAPARIN 40 MG/0.4 ML SYRINGE SUBCUT SCH (09:19)
[2020-12-30] MEDS: ASPIRIN 325 MG TABLET PO SCH (09:19)
[2020-12-30] MEDS: METOPROLOL SUCCINATE XL 25 MG TABLET PO SCH (09:19)
[2020-12-30] MEDS: PANTOPRAZOLE 40 MG TABLET PO SCH (09:19)
[2020-12-30] MEDS: SERTRALINE 50 MG TABLET PO SCH (09:20)
[2020-12-30] MEDS: DIGOXIN 0.125 MG TABLET PO SCH (13:31)
[2020-12-30] MEDS: ATORVASTATIN 80 MG TABLET PO SCH (20:35)
[2020-12-31 04:46] LABS: Basophils % 0.7 % (0.0-0.8); Eosinophils # 0.1 10*3/uL (0.0-0.87); Eosinophils % 1.9 % (0.00-10.9); Hematocrit 37.3 VOL% (42.0-52.0); Hemoglobin 11.9 GM/DL (14.0-18.0); Immature Granulocytes % 0.2 %; Immature Granulocytes Absolute 0.01 #; Lymphocytes # 2.2 10*3/uL (1.4-4.0); Lymphocytes % 40.6 % (21.2-54.2); Mean Corpuscular HGB Conc 31.9 GM/DL (32-36); Mean Corpuscular Volume 87.4 FL (87-102); Mean Platelet Volume 11.8 FL (9.6-12.0); Monocytes % 10.4 % (1.7-12.7); Neutrophils % 46.2 % (38.7-73.9); Platelet Count 177 T/CUMM (130-400); Red Blood Count 4.27 MC/CUMM (3.8-5.5); Red Cell Distribution Width 15.7 % (9.3-17.3); White Blood Count 5.4 T/CUMM (4-12)
[2020-12-31 05:01] LABS: Calcium 9.2 MG/DL (8.5-10.1); Osmolality,Calculated 274.7 MOS/KG (273-304); Potassium 4.1 MMOL/L (3.5-5.1)
[2020-12-31 05:13] LABS: Eosinophils 1 % (0-10); Lymphocytes 36 % (20-55); Platelet Estimate Adequate; Segmented Neutrophils 57 % (50-85); Total Cells Counted 100
[2020-12-31] MEDS ORDERED: TUBERCULIN SKIN TEST 0.1 ML SYRINGE INTRADERM ONE (07:26)
[2020-12-31] MEDS: METOPROLOL SUCCINATE XL 25 MG TABLET PO SCH (08:37)
[2020-12-31] MEDS: ASPIRIN 325 MG TABLET PO SCH (08:37)
[2020-12-31] MEDS: ENOXAPARIN 40 MG/0.4 ML SYRINGE SUBCUT SCH (08:37)
[2020-12-31] MEDS: SERTRALINE 50 MG TABLET PO SCH (08:37)
[2020-12-31] MEDS: PANTOPRAZOLE 40 MG TABLET PO SCH (08:37)
[2020-12-31] MEDS: POLYETHYLENE GLYCOL POWDER 17 GM PACK PO SCH (08:38)
[2020-12-31] MEDS: DIGOXIN 0.125 MG TABLET PO SCH (14:20)
[2020-12-31] MEDS: APIXABAN 5 MG TABLET PO SCH (21:30)
[2020-12-31] MEDS: ATORVASTATIN 80 MG TABLET PO SCH (21:30)
[2021-01-01] MEDS: ASPIRIN 325 MG TABLET PO SCH (09:06)
[2021-01-01] MEDS: METOPROLOL SUCCINATE XL 25 MG TABLET PO SCH (09:06)
[2021-01-01] MEDS: POLYETHYLENE GLYCOL POWDER 17 GM PACK PO SCH (09:06)
[2021-01-01] MEDS: APIXABAN 5 MG TABLET PO SCH ×2 (09:06→21:39)
[2021-01-01] MEDS: PANTOPRAZOLE 40 MG TABLET PO SCH (09:06)
[2021-01-01] MEDS: SERTRALINE 50 MG TABLET PO SCH (09:06)
[2021-01-01] MEDS: DIGOXIN 0.125 MG TABLET PO SCH (13:33)
[2021-01-01] MEDS: ATORVASTATIN 80 MG TABLET PO SCH (21:39)
[2021-01-02] MEDS: METOPROLOL SUCCINATE XL 25 MG TABLET PO SCH ×2 (10:09→12:28)
[2021-01-02] MEDS: APIXABAN 5 MG TABLET PO SCH ×2 (10:09→12:28)
[2021-01-02] MEDS: ASPIRIN 325 MG TABLET PO SCH ×2 (10:09→12:28)
[2021-01-02] MEDS: SERTRALINE 50 MG TABLET PO SCH ×2 (10:09→12:27)
[2021-01-02] MEDS: PANTOPRAZOLE 40 MG TABLET PO SCH ×2 (10:09→12:28)
[2021-01-02] MEDS: POLYETHYLENE GLYCOL POWDER 17 GM PACK PO SCH ×2 (10:10→12:26)
[2021-01-02 12:17] VITALS: BP 103/64
[2021-01-02] MEDS: DIGOXIN 0.125 MG TABLET PO SCH (16:16)
== END 2021-01-02 15:30 | disposition home health service (06) | DRG 65 ==
LOC: EDUNIT# → N.ED 14:04 → N.EDINP 15:38 → SUATTDRO 15:38 → N.4E 16:38
PROVIDERS: ADMIT Internal Medicine; ATTEND Emergency Medicine